=== PATIENT | female | born 1975 | race Caucasian/White ===

== ENCOUNTER 2018-02-05 12:49 | Emergency (ER) | payer MEDICAID ==
[~2018-02-05] VITALS: Ht 182.9 cm; Wt 86.4 kg
[2018-02-05 13:37] LABS: CLARITY,URINE Cloudy (Clear); COLOR,URINE Yellow (Yellow); GLUCOSE, URINE Negative (Neg); KETONES,URINE Trace mg/dl (Neg); LEUKOCYTE ESTERASE ,URINE Large (Neg); NITRITES, URINE Negative (Neg); OCCULT BLOOD,URINE Negative (Neg); PH,URINE 5.5 (4.8-8.0); PROTEIN,URINE Trace mg/dl (Neg)
[2018-02-05 13:40] LABS: UA COLLECTION TYPE VOIDED
[2018-02-05 13:46] LABS: BACTERIA,URINE 3+ /HPF (Neg); MUCUS STRANDS MANY /LPF (Neg); RBC,URINE 0-2 /HPF (0-2); SQUAMOUS EPITHELIAL CELL,UR MANY /LPF (FEW); WBC,URINE 50-100 /HPF (0-4)
[2018-02-05 14:59] LABS: CLARITY,URINE CLOUDY (Clear); COLOR,URINE YELLOW (Yellow); GLUCOSE, URINE NEGATIVE (Neg); KETONES,URINE TRACE mg/dl (Neg); LEUKOCYTE ESTERASE ,URINE MODERATE (Neg); NITRITES, URINE NEGATIVE (Neg); OCCULT BLOOD,URINE NEGATIVE (Neg); PROTEIN,URINE NEGATIVE (Neg); UROBILINOGEN,URINE 0.2 E.U/dL (0.2-1.0)
[2018-02-05 15:04] LABS: UA COLLECTION TYPE CLN CATCH MIDSTREAM
[2018-02-05 15:08] LABS: BACTERIA,URINE 1+ /HPF (Neg); MUCUS STRANDS MANY /LPF (Neg); RBC,URINE 0-2 /HPF (0-2); SQUAMOUS EPITHELIAL CELL,UR MANY /LPF (FEW)
[2018-02-05] MEDS ORDERED: METR500T4 PO (15:27)
[2018-02-05 15:36] VITALS: BP 104/58
== END 2018-02-05 15:37 | disposition home or self-care (01) ==
LOC: ER 12:49
DX: N76.0 Acute vaginitis (principal); F15.90 Other stimulant use, unspecified, uncomplicated; Z90.89 Acquired absence of other organs; Z98.890 Other specified postprocedural states; Z87.891 Personal history of nicotine dependence; Z88.0 Allergy status to penicillin; Z88.2 Allergy status to sulfonamides; Z79.899 Other long term (current) drug therapy
CPT/HCPCS: 36415; 81001; 87210; 87491; 99284

== ENCOUNTER 2018-02-16 08:07 | Emergency (ER) | payer MEDICAID ==
[~2018-02-16] VITALS: Ht 182.9 cm; Wt 96.0 kg
[2018-02-16] MEDS ORDERED: loratadine 10mg tablet PO ONE (08:35)
[2018-02-16] MEDS ORDERED: bacitracin 15gm ointment TP ONE (08:35)
[2018-02-16] MEDS ORDERED: erythromycin ophthalmic ointment 1gm tube LEFTEYE ONE (08:35)
[2018-02-16 09:31] VITALS: BP 109/71
== END 2018-02-16 09:51 | disposition home or self-care (01) ==
LOC: ER 08:07
DX: I80.9 Phlebitis and thrombophlebitis of unspecified site (principal); H57.12 Ocular pain, left eye; F15.10 Other stimulant abuse, uncomplicated; Z88.0 Allergy status to penicillin; Z88.2 Allergy status to sulfonamides
CPT/HCPCS: 99284

== ENCOUNTER 2018-03-12 15:09 | Emergency (ER) | payer MEDICAID ==
[~2018-03-12] VITALS: Ht 182.9 cm; Wt 94.2 kg
[~2018-03-12 15:09] MED LIST: CYAN1TAB7 SL; HYDR-569 PO; MULT1TAB66 PO; PANT20TA3 PO; POLY17PO10 PO
[2018-03-12] MEDS ORDERED: morphine 4 MG/ML inj SYRINge IV PRN (15:25)
[2018-03-12] MEDS ORDERED: ondansetron/PF 4mg/2ml inj IV ONE ×2 (15:25→16:25)
[2018-03-12] MEDS ORDERED: normal saline 1000ML IV soln IVB ONE (15:25)
[2018-03-12 15:44] LABS: BASOPHILS # (AUTO) 0.1 X10'3 (0-0.2); BASOPHILS % (AUTO) 1.7 % (0-1); EOSINOPHILS # (AUTO) 0.6 X10'3 (0-0.9); EOSINOPHILS % (AUTO) 9.4 % (0-6); HEMATOCRIT 38.1 % (35.0-45.0); HEMOGLOBIN 12.8 g/dl (12.0-16.0); LYMPHOCYTES # (AUTO) 1.8 X10'3 (1.1-4.8); LYMPHOCYTES % (AUTO) 27.4 % (21-51); MEAN CORPUSCULAR HEMOGLOBIN 28.3 PG (27.0-31.0); MEAN CORPUSCULAR HGB CONC 33.5 % (33.0-36.5); MEAN CORPUSCULAR VOLUME 84.6 FL (78-98); MEAN PLATELET VOLUME 7.5 FL (7.4-10.4); MONOCYTES # (AUTO) 0.5 X10'3 (0-0.9); MONOCYTES % (AUTO) 8.4 % (2-12); NEUTROPHILS # (AUTO) 3.5 X10'3 (1.8-7.7); NEUTROPHILS % (AUTO) 53.1 % (42-75); PLATELET COUNT 304 X10'3 (140-440); RED BLOOD COUNT 4.51 X10'6 (4.20-5.60); RED CELL DISTRIBUTION WIDTH 14.6 % (11.5-14.5); WHITE BLOOD COUNT 6.6 X10'3 (4.5-11.0)
[2018-03-12 15:47] LABS: URINE HCG NEGATIVE (NEG)
[2018-03-12 16:00] LABS: ALANINE AMINOTRANSFERASE 22 U/L (12-78); ALBUMIN 3.4 G/DL (3.4-5.0); ALKALINE PHOSPHATASE 82 IU/L (46-116); ANION GAP 7 (8-16); ASPARTATE AMINO TRANSFERASE 21 U/L (10-37); BILIRUBIN,TOTAL 0.3 MG/DL (0.1-1.0); BLOOD UREA NITROGEN 17 MG/DL (7-18); BUN/CREATININE RATIO 19.1 (6.6-38.0); CALCIUM 8.8 MG/DL (8.5-10.1); CHLORIDE 105 MMOL/L (99-107); CREATININE 0.89 MG/DL (0.40-0.90); GLUCOSE 84 MG/DL (70-104); LIPASE 258 U/L (73-393); POTASSIUM 4.3 MMOL/L (3.5-5.1); SODIUM 139 MMOL/L (135-145); TOTAL PROTEIN 6.7 G/DL (6.4-8.2); eGFR 70 ML/MIN
[2018-03-12] MEDS: diatr meglu/diatrizoate 30ml oral sol.-(3 dose) bottle PO SCH ×2 (16:19→16:59)
[2018-03-12] MEDS ORDERED: SUCR1TAB34 PO (18:23)
[2018-03-12] MEDS ORDERED: ONDA8TAB9 PO (18:24)
[2018-03-12 18:37] VITALS: BP 126/71
== END 2018-03-12 18:38 | disposition home or self-care (01) ==
LOC: ER 15:09
DX: R10.9 Unspecified abdominal pain (principal); Z98.890 Other specified postprocedural states; Z88.0 Allergy status to penicillin; Z88.2 Allergy status to sulfonamides
CPT/HCPCS: 36415; 74176; 80053; 81025; 83690; 85025; 96374; 99285; J2405; J7030; Q9963

== ENCOUNTER 2018-04-30 10:02 | Emergency (ER) | payer MEDICAID ==
[~2018-04-30] VITALS: Ht 182.9 cm; Wt 100.0 kg
[~2018-04-30 10:02] MED LIST changes: +HYDR-4383 PO; -HYDR-569 PO; +ONDA8TAB9 PO; -POLY17PO10 PO; +SUCR1TAB34 PO
[2018-04-30 10:36] LABS: URINE HCG NEGATIVE (NEG)
[2018-04-30 10:37] LABS: BASOPHILS % (AUTO) 0.6 % (0-1); EOSINOPHILS # (AUTO) 0.2 X10'3 (0-0.9); EOSINOPHILS % (AUTO) 4.7 % (0-6); HEMATOCRIT 34.3 % (35.0-45.0); HEMOGLOBIN 11.4 g/dl (12.0-16.0); LYMPHOCYTES # (AUTO) 1.2 X10'3 (1.1-4.8); LYMPHOCYTES % (AUTO) 23.7 % (21-51); MEAN CORPUSCULAR HEMOGLOBIN 27.9 PG (27.0-31.0); MEAN CORPUSCULAR HGB CONC 33.2 % (33.0-36.5); MEAN CORPUSCULAR VOLUME 84.1 FL (78-98); MEAN PLATELET VOLUME 8.4 FL (7.4-10.4); MONOCYTES # (AUTO) 0.4 X10'3 (0-0.9); MONOCYTES % (AUTO) 7.4 % (2-12); NEUTROPHILS # (AUTO) 3.2 X10'3 (1.8-7.7); NEUTROPHILS % (AUTO) 63.6 % (42-75); PLATELET COUNT 240 X10'3 (140-440); RED BLOOD COUNT 4.08 X10'6 (4.20-5.60); RED CELL DISTRIBUTION WIDTH 14.8 % (11.5-14.5); WHITE BLOOD COUNT 5.1 X10'3 (4.5-11.0)
[2018-04-30 10:46] LABS: PROTHROMBIN TIME 10.4 SECONDS (9.0-12.0)
[2018-04-30 10:49] LABS: ALANINE AMINOTRANSFERASE 24 U/L (12-78); ALBUMIN 3.2 G/DL (3.4-5.0); ALKALINE PHOSPHATASE 74 IU/L (46-116); ANION GAP 5 (8-16); ASPARTATE AMINO TRANSFERASE 19 U/L (10-37); BILIRUBIN,TOTAL 0.3 MG/DL (0.1-1.0); BLOOD UREA NITROGEN 14 MG/DL (7-18); BUN/CREATININE RATIO 15.7 (6.6-38.0); CHLORIDE 109 MMOL/L (99-107); CREATININE 0.89 MG/DL (0.40-0.90); GLUCOSE 89 MG/DL (70-104); LIPASE 247 U/L (73-393); POTASSIUM 4.3 MMOL/L (3.5-5.1); SODIUM 140 MMOL/L (135-145); TOTAL CARBON DIOXIDE 25.8 MMOL/L (24-32); TOTAL PROTEIN 6.4 G/DL (6.4-8.2); eGFR 70 ML/MIN
[2018-04-30 10:55] LABS: CLARITY,URINE CLEAR (Clear); COLOR,URINE YELLOW (Yellow); GLUCOSE, URINE NEGATIVE (Neg); KETONES,URINE NEGATIVE (Neg); LEUKOCYTE ESTERASE ,URINE SMALL (Neg); NITRITES, URINE NEGATIVE (Neg); OCCULT BLOOD,URINE SMALL (Neg); PH,URINE 5.5 (4.8-8.0); PROTEIN,URINE NEGATIVE (Neg); UROBILINOGEN,URINE 0.2 E.U/dL (0.2-1.0)
[2018-04-30 11:02] LABS: UA COLLECTION TYPE CLN CATCH MIDSTREAM
[2018-04-30 11:10] LABS: BACTERIA,URINE FEW /HPF (Neg); RBC,URINE 0-2 /HPF (0-2); SQUAMOUS EPITHELIAL CELL,UR MANY /LPF (FEW); WBC,URINE 0-4 /HPF (0-4)
[2018-04-30] MEDS ORDERED: normal saline 1000ML IV soln IVB ONE (11:10)
[2018-04-30] MEDS ORDERED: ondansetron/PF 4mg/2ml inj IV ONE (11:10)
[2018-04-30] MEDS ORDERED: pantoprazole 40 MG vial IV ONE (11:10)
[2018-04-30 12:07] LABS: CLARITY,URINE CLEAR (Clear); COLOR,URINE YELLOW (Yellow); GLUCOSE, URINE NEGATIVE (Neg); KETONES,URINE NEGATIVE (Neg); LEUKOCYTE ESTERASE ,URINE SMALL (Neg); NITRITES, URINE NEGATIVE (Neg); OCCULT BLOOD,URINE TRACE-INTACT (Neg); PH,URINE 5.5 (4.8-8.0); PROTEIN,URINE NEGATIVE (Neg); UROBILINOGEN,URINE 0.2 E.U/dL (0.2-1.0)
[2018-04-30 12:09] LABS: UA COLLECTION TYPE CLN CATCH MIDSTREAM
[2018-04-30 12:17] LABS: BACTERIA,URINE FEW /HPF (Neg); MUCUS STRANDS FEW /LPF (Neg); RBC,URINE 0-2 /HPF (0-2); SQUAMOUS EPITHELIAL CELL,UR MODERATE /LPF (FEW); WBC,URINE 0-4 /HPF (0-4)
[2018-04-30] MEDS ORDERED: DICY10CA88 PO (13:06)
[2018-04-30] MEDS ORDERED: ONDA8TAB13 PO (13:06)
[2018-04-30] MEDS ORDERED: SIME180C34 PO (13:06)
[2018-04-30 13:18] VITALS: BP 110/77
== END 2018-04-30 13:26 | disposition home or self-care (01) ==
LOC: ER 10:03
DX: G89.29 Other chronic pain (principal); R10.13 Epigastric pain; R10.11 Right upper quadrant pain; R10.12 Left upper quadrant pain; Z98.890 Other specified postprocedural states; Z90.89 Acquired absence of other organs; Z98.84 Bariatric surgery status; Z88.0 Allergy status to penicillin; Z88.2 Allergy status to sulfonamides; Z79.899 Other long term (current) drug therapy
CPT/HCPCS: 36415; 74022; 80053; 81001; 81025; 83690; 85025; 85610; 87088; 96374; 96375; 99285; C9113; J2405; J7030; 96361

== ENCOUNTER 2018-05-28 11:41 | Emergency (ER) | payer MEDICAID ==
[~2018-05-28] VITALS: Ht 182.9 cm; Wt 97.7 kg
[~2018-05-28 11:41] MED LIST changes: +DICY10CA88 PO; +ONDA8TAB13 PO; +SIME180C34 PO
[2018-05-28] MEDS ORDERED: HYDROcodone/acetaminophen 5mg/325mg tablet PO ONE (12:05)
[2018-05-28] MEDS ORDERED: ketorolac trometh inj. 60 MG/2 ML VIAL IM ONE (12:05)
[2018-05-28] MEDS ORDERED: cyclobenzaprine 10mg tablet PO ONE (12:05)
[2018-05-28] MEDS ORDERED: IBUP-1984 PO (12:06)
[2018-05-28] MEDS ORDERED: CYCL-1 PO (12:06)
[2018-05-28] MEDS ORDERED: ACET-3067 PO (12:06)
[2018-05-28 12:26] VITALS: BP 149/68
== END 2018-05-28 12:28 | disposition home or self-care (01) ==
LOC: ER 11:42
DX: M54.41 Lumbago with sciatica, right side (principal); Z98.0 Intestinal bypass and anastomosis status; Z98.890 Other specified postprocedural states; Z88.0 Allergy status to penicillin; Z88.2 Allergy status to sulfonamides; Z79.899 Other long term (current) drug therapy
CPT/HCPCS: 96372; 99283; J1885

== ENCOUNTER 2018-06-26 17:43 | Emergency (ER) | payer MEDICAID ==
[~2018-06-26] VITALS: Ht 182.9 cm; Wt 99.8 kg
[~2018-06-26 17:43] MED LIST changes: +CYCL-1 PO
[2018-06-26 17:54] VITALS: BP 118/88
--- NOTE | 2018-06-26 18:37 | NUR ---
PA at bedside assessing pt
== END 2018-06-26 19:32 | disposition home or self-care (01) ==
LOC: ER 17:43
DX: S60.511A Abrasion of right hand, initial encounter (principal); M79.644 Pain in right finger(s); Z88.0 Allergy status to penicillin; Z88.2 Allergy status to sulfonamides; Z98.84 Bariatric surgery status; W23.0XXA Caught, crushed, jammed, or pinched between moving objects, initial encounter; Y93.89 Activity, other specified; Y92.89 Other specified places as the place of occurrence of the external cause; Y99.8 Other external cause status
CPT/HCPCS: 29125; 73130; 99283

== ENCOUNTER 2018-09-12 17:11 | Emergency (ER) | payer MEDICAID ==
[~2018-09-12] VITALS: Ht 182.9 cm; Wt 95.5 kg
[2018-09-12] MEDS ORDERED: ketorolac trometh. 30mg/ml inj. IV ONE (18:15)
[2018-09-12] MEDS ORDERED: normal saline 1000ML IV soln IVB ONE (18:15)
[2018-09-12] MEDS ORDERED: ondansetron/PF 4mg/2ml inj IV ONE (18:15)
[2018-09-12] MEDS ORDERED: dexamethasone sod phosphate 10mg/ml inj IV STA (18:16)
[2018-09-12] MEDS ORDERED: proCHLORperazine 10 MG/2 ml inj IV ONE (18:50)
[2018-09-12] MEDS ORDERED: LORazepam 2 mg/ml vial IV ONE (18:55)
--- NOTE | 2018-09-12 19:53 | NUR ---
HOB slowly, AND IN INCREMENTS, RAISED TO ABOUT 50 DEGREES PATIENT STATES THAT HER HEAD HURTS SLIGHTLY MORE WITH HOB UP
[2018-09-12 20:03] VITALS: BP 106/65
== END 2018-09-12 20:15 | disposition home or self-care (01) ==
LOC: ER 17:12
DX: R51 Headache (principal); Z98.890 Other specified postprocedural states; Z90.89 Acquired absence of other organs; Z98.84 Bariatric surgery status; Z88.0 Allergy status to penicillin; Z88.2 Allergy status to sulfonamides; Z79.899 Other long term (current) drug therapy
CPT/HCPCS: 96374; 96375; 99283; J0780; J1100; J1885; J2060; J2405; J7030

== ENCOUNTER 2018-09-20 16:39 | Emergency (ER) | payer MEDICAID ==
[~2018-09-20] VITALS: Ht 182.9 cm; Wt 98.0 kg
[2018-09-20] MEDS ORDERED: ondansetron/PF 4mg/2ml inj IV ONE (17:15)
[2018-09-20] MEDS ORDERED: ketorolac trometh. 30mg/ml inj. IV ONE (17:15)
[2018-09-20] MEDS ORDERED: normal saline 1000ML IV soln IVB ONE (17:15)
[2018-09-20 17:40] LABS: BASOPHILS # (AUTO) 0.1 X10'3 (0-0.2); BASOPHILS % (AUTO) 1.1 % (0-1); EOSINOPHILS # (AUTO) 0.2 X10'3 (0-0.9); EOSINOPHILS % (AUTO) 3.3 % (0-6); HEMATOCRIT 37.7 % (35.0-45.0); HEMOGLOBIN 12.1 g/dl (12.0-16.0); LYMPHOCYTES % (AUTO) 31.1 % (21-51); MEAN CORPUSCULAR HEMOGLOBIN 26.5 PG (27.0-31.0); MEAN CORPUSCULAR HGB CONC 32.1 g/dL (33.0-36.5); MEAN CORPUSCULAR VOLUME 82.5 FL (78-98); MEAN PLATELET VOLUME 7.8 FL (7.4-10.4); MONOCYTES # (AUTO) 0.6 X10'3 (0-0.9); MONOCYTES % (AUTO) 8.9 % (2-12); NEUTROPHILS # (AUTO) 3.6 X10'3 (1.8-7.7); NEUTROPHILS % (AUTO) 55.6 % (42-75); PLATELET COUNT 284 X10'3 (140-440); RED BLOOD COUNT 4.57 X10'6 (4.20-5.60); RED CELL DISTRIBUTION WIDTH 15.2 % (11.5-14.5); WHITE BLOOD COUNT 6.6 X10'3 (4.5-11.0)
[2018-09-20 17:49] LABS: ALANINE AMINOTRANSFERASE 20 U/L (12-78); ALBUMIN 3.7 G/DL (3.4-5.0); ALBUMIN/GLOBULIN RATIO 1.2 (1.1-1.5); ALKALINE PHOSPHATASE 65 IU/L (46-116); ANION GAP 6 (8-16); ASPARTATE AMINO TRANSFERASE 15 U/L (10-37); BILIRUBIN,TOTAL 0.2 MG/DL (0.1-1.0); BLOOD UREA NITROGEN 10 MG/DL (7-18); BUN/CREATININE RATIO 10.9 (6.6-38.0); CALCIUM 8.6 MG/DL (8.5-10.1); CHLORIDE 107 MMOL/L (99-107); CREATININE 0.92 MG/DL (0.40-0.90); GLUCOSE 90 MG/DL (70-104); LIPASE 232 U/L (73-393); POTASSIUM 4.2 MMOL/L (3.5-5.1); SODIUM 141 MMOL/L (135-145); TOTAL CARBON DIOXIDE 28.4 MMOL/L (24-32); TOTAL PROTEIN 6.7 G/DL (6.4-8.2); eGFR 67 ML/MIN
[2018-09-20 18:19] LABS: CLARITY,URINE SLIGHTLY CLOUDY (Clear); COLOR,URINE YELLOW (Yellow); GLUCOSE, URINE NEGATIVE (Neg); KETONES,URINE NEGATIVE (Neg); LEUKOCYTE ESTERASE ,URINE NEGATIVE (Neg); NITRITES, URINE NEGATIVE (Neg); OCCULT BLOOD,URINE NEGATIVE (Neg); PROTEIN,URINE NEGATIVE (Neg); UROBILINOGEN,URINE 0.2 E.U/dL (0.2-1.0)
[2018-09-20 18:42] LABS: UA COLLECTION TYPE CLN CATCH MIDSTREAM
[2018-09-20 18:43] LABS: BACTERIA,URINE 3+ /HPF (Neg); RBC,URINE NONE SEEN /HPF (0-2); SQUAMOUS EPITHELIAL CELL,UR MANY /LPF (FEW); WBC,URINE 0-4 /HPF (0-4)
[2018-09-20] MEDS ORDERED: hyoscyamine 0.125mg TAB.SUBL SL ONE (18:55)
[2018-09-20 19:30] VITALS: BP 126/65
== END 2018-09-20 19:31 | disposition home or self-care (01) ==
LOC: ER 16:40
DX: R10.12 Left upper quadrant pain (principal); R10.13 Epigastric pain; R11.0 Nausea; Z88.0 Allergy status to penicillin; Z88.2 Allergy status to sulfonamides
CPT/HCPCS: 36415; 74176; 80053; 81001; 83690; 85025; 96374; 96375; 99284; J1885; J2405; J7030